=== PATIENT | female | born 2000 | race Caucasian/White ===

== ENCOUNTER 2018-04-21 02:08 | Emergency (ER) | payer SELFPAY ==
[~2018-04-21] VITALS: Ht 157.5 cm; Wt 61.2 kg
[2018-04-21] MEDS ORDERED: INSU100C (02:23)
[2018-04-21] MEDS ORDERED: INSU100I24 (02:23)
--- NOTE | 2018-04-21 02:32 | NUR ---
DR LAUREN DO MD AT BEDSIDE FOR MSE.
--- NOTE | 2018-04-21 02:48 | NUR ---
Patient discharged to home in stable conditon. Written and verbal after care instructions given. Patient verbalizes understanding of instructions. No distress noted.
[2018-04-21 02:49] VITALS: BP 116/63
== END 2018-04-21 02:49 | disposition home or self-care (01) ==
LOC: ER 02:14
DX: S80.212A Abrasion, left knee, initial encounter (principal); E11.9 Type 2 diabetes mellitus without complications; Z79.4 Long term (current) use of insulin; V43.62XA Car passenger injured in collision with other type car in traffic accident, initial encounter; Y93.89 Activity, other specified; Y92.410 Unspecified street and highway as the place of occurrence of the external cause; Y99.8 Other external cause status
CPT/HCPCS: 99281; A4663

== ENCOUNTER 2019-03-05 22:05 | Emergency (ER) | payer BC ==
[~2019-03-05] VITALS: Ht 160 cm; Wt 63.5 kg
[~2019-03-05 22:05] MED LIST: INSU100C; INSU100I24
[2019-03-05 22:33] LABS: *BLOOD, URINE 3+ (NEGATIVE); *CLARITY,URINE CLOUDY (CLEAR); *COLOR,URINE RED (YELLOW); *KETONES,URINE 1+ (NEGATIVE); LEUKOCYTE ESTERASE ,URINE 3+ (NEGATIVE); NITRITE, URINE POSITIVE (NEGATIVE)
[2019-03-05 22:46] LABS: *BILIRUBIN,URIN 2+ (NEGATIVE); UGLUCOSE 3+ (NEGATIVE)
[2019-03-05 22:51] LABS: *URINE HCG, QUAL NEGATIVE (NEGATIVE)
[2019-03-05 22:54] LABS: BACTERIA,URINE MODERATE /HPF (NONE SEEN); RBC,URINE TNTC /HPF (0-3); SQUAMOUS EPITHELIAL CELL,UR FEW /HPF (NONE SEEN)
[2019-03-05] MEDS ORDERED: KETOROLAC TROMETHAMINE 15 MG INJ IV ONE (23:00)
[2019-03-05] MEDS ORDERED: IV NORMAL SALINE 1000 ML BAG IV ONE (23:00)
[2019-03-05] MEDS ORDERED: ONDANSETRON 4 MG/2 ML VIAL IV ONE (23:00)
[2019-03-05] MEDS ORDERED: KETOROLAC TROMETHAMINE 30 MG INJ ONE (23:21)
[2019-03-05] MEDS ORDERED: ONDANSETRON 4 MG/2 ML VIAL ONE (23:21)
[2019-03-05 23:22] LABS: BASOPHILS % (AUTO) 0.8 % (0.0-2.0); EOSINOPHILS % (AUTO) 0.5 % (0.0-7.0); HEMATOCRIT 40.4 % (31.2-41.9); HEMOGLOBIN 12.8 g/dL (10.9-14.3); LYMPHOCYTES # (AUTO) 1.5 K/uL (20.0-40.0); LYMPHOCYTES % (AUTO) 23.5 % (20.5-74.5); MEAN CORPUSCULAR HGB CONC 32 g/dL (32.3-35.6); MEAN CORPUSCULAR VOLUME 62.9 fL (75.5-95.3); MONOCYTES # (AUTO) 0.5 K/uL (2.0-10.0); NEUTROPHILS # (AUTO) 4.4 K/uL (1.8-8.9); NEUTROPHILS % (AUTO) 67.2 % (31.5-64.5); PLATELET COUNT (AUTO) 267 K/uL (179-408); RED BLOOD CELL COUNT(AUTO) 6.42 MIL/uL (3.63-4.92); WHITE BLOOD COUNT (AUTO) 6.5 K/uL (3.8-11.8)
[2019-03-05 23:31] LABS: CREATININE 0.6 mg/dL (0.6-1.3); POTASSIUM 3.8 mmol/L (3.5-5.1)
[2019-03-05 23:36] LABS: BILIRUBIN,DIRECT 0.1 mg/dL (0.0-0.2); BILIRUBIN,TOTAL 0.4 mg/dL (0.2-1.0)
--- NOTE | 2019-03-05 23:36 | NUR ---
Ultrasound at bedside.
[2019-03-05 23:51] LABS: LYMPHOCYTES % (MANUAL) 25 % (38-48); MONOCYTES % (MANUAL) 7 % (2-10); NEUTROPHILS % (MANUAL) 68 % (40-55)
--- NOTE | 2019-03-06 00:23 | NUR ---
IV removed. Catheter intact and site benign. Pressure and 4x4 gauze applied to site. No bleeding noted.
[2019-03-06 00:26] VITALS: BP 114/86
--- NOTE | 2019-03-06 00:27 | NUR ---
Patient discharged to home in stable conditon. Written and verbal after care instructions given. Patient verbalizes understanding of instructions. Pt left ER in stable gait with boyfriend. Pt states has no more pain. All belongings w pt. VSS No acute distress noted.
== END 2019-03-06 00:28 | disposition home or self-care (01) ==
LOC: ER 22:05
DX: R10.30 Lower abdominal pain, unspecified (principal); R11.10 Vomiting, unspecified; E11.9 Type 2 diabetes mellitus without complications; Z79.4 Long term (current) use of insulin
CPT/HCPCS: 36415; 76856; 80048; 80076; 81001; 82962; 84703; 85025; 96361; 96374; 96375; 99284; J1885; J2405; A4663; J7030

== ENCOUNTER 2020-01-13 10:50 | Inpatient (IN) | payer BC ==
[~2020-01-13] VITALS: Ht 160 cm; Wt 59.1 kg
[2020-01-13] MEDS ORDERED: ONDANSETRON 4 MG/2 ML VIAL ONE (11:11)
[2020-01-13] MEDS ORDERED: INSULIN REGULAR, HUMAN 300 UNIT/3 ML VIAL ONE (11:11)
[2020-01-13] MEDS ORDERED: PANTOPRAZOLE SODIUM 40 MG VIAL IV ONE (11:15)
[2020-01-13] MEDS ORDERED: INSULIN REGULAR, HUMAN 300 UNIT/3 ML VIAL IV ONE (11:15)
[2020-01-13] MEDS ORDERED: ONDANSETRON 4 MG/2 ML VIAL IV ONE (11:15)
[2020-01-13] MEDS ORDERED: IV NORMAL SALINE 1000 ML BAG IV ONE (11:15)
[2020-01-13] MEDS ORDERED: INSULIN REGULAR, HUMAN 100 UNITS in IV NORMAL SALINE 100 ML IV ONE ×2 (11:15)
[2020-01-13 11:33] LABS: *BILIRUBIN,URIN NEGATIVE (NEGATIVE); *COLOR,URINE YELLOW (YELLOW); *KETONES,URINE 4+ (NEGATIVE); *UROBILINOGEN,URINE 0.2 E.U./dl (NORMAL); LEUKOCYTE ESTERASE ,URINE TRACE (NEGATIVE); NITRITE, URINE NEGATIVE (NEGATIVE); UGLUCOSE 2+ (NEGATIVE)
[2020-01-13 11:40] LABS: *BLOOD, URINE TRACE (NEGATIVE); *CLARITY,URINE SLIGHTLY CLOUDY (CLEAR)
[2020-01-13] MEDS ORDERED: PANTOPRAZOLE SODIUM 40 MG VIAL ONE (11:42)
[2020-01-13 11:47] LABS: BILIRUBIN,DIRECT 0.1 mg/dL (0.0-0.2); BILIRUBIN,TOTAL 0.9 mg/dL (0.2-1.0); CREATININE 0.9 mg/dL (0.6-1.3); POTASSIUM 4.9 mmol/L (3.5-5.1); TOTAL PROTEIN, SERUM 9.1 g/dL (6.4-8.2)
[2020-01-13 11:48] LABS: BACTERIA,URINE FEW /HPF (NONE SEEN); RBC,URINE 0-3 /HPF (0-3); SQUAMOUS EPITHELIAL CELL,UR MODERATE /HPF (NONE SEEN)
[2020-01-13 11:53] LABS: BASOPHILS # (AUTO) 0.1 K/uL (0.0-8.0); BASOPHILS % (AUTO) 0.8 % (0.0-2.0); EOSINOPHILS % (AUTO) 0.2 % (0.0-7.0); HEMATOCRIT 45.7 % (31.2-41.9); HEMOGLOBIN 13.8 g/dL (10.9-14.3); LYMPHOCYTES # (AUTO) 3.6 K/uL (20.0-40.0); LYMPHOCYTES % (AUTO) 27.9 % (20.5-51.5); MEAN CORPUSCULAR HEMOGLOBIN 21.1 uug (24.7-32.8); MEAN CORPUSCULAR HGB CONC 30 g/dL (32.3-35.6); MEAN CORPUSCULAR VOLUME 69.7 fL (75.5-95.3); MONOCYTES # (AUTO) 0.9 K/uL (2.0-10.0); MONOCYTES % (AUTO) 6.8 % (0.0-11.0); NEUTROPHILS # (AUTO) 8.3 K/uL (1.8-8.9); NEUTROPHILS % (AUTO) 64.3 % (38.5-71.5); PLATELET COUNT (AUTO) 295 K/uL (179-408); WHITE BLOOD COUNT (AUTO) 12.8 K/uL (3.8-11.8)
[2020-01-13 12:00] LABS: RED BLOOD CELL COUNT(AUTO) 6.56 MIL/uL (3.63-4.92)
--- NOTE | 2020-01-13 12:01 | NUR ---
Patient is resting comfortably in bed with eyes closed, no c/o pain.
[2020-01-13 12:06] LABS: LYMPHOCYTES % (MANUAL) 26 % (20-40); NEUTROPHILS % (MANUAL) 66 % (42-75)
[2020-01-13 12:07] LABS: MONOCYTES % (MANUAL) 8 % (2-10)
[2020-01-13 12:10] LABS: LIPASE 58 U/L (73-393)
--- NOTE | 2020-01-13 12:12 | NUR ---
Insulin drip increased to 5u/hr per MD order/protocol.
--- NOTE | 2020-01-13 12:24 | NUR ---
[facility] contacted
--- NOTE | 2020-01-13 12:30 | NUR ---
Insulin drip decreased to 3U/hr per MD/Protocol.
--- NOTE | 2020-01-13 13:36 | NUR ---
Pt's family at the bedside. pt is resting in bed speaking w/ family. NAD noted.
[2020-01-13] MEDS ORDERED: POTASSIUM CHLORIDE 50 ML IV STA (13:47)
[2020-01-13] MEDS ORDERED: POTASSIUM CHLORIDE 50 ML ONE (14:00)
[2020-01-13] MEDS ORDERED: IV D5 1/2 NS 1000 ML 1,000 ML IV ONE (14:00)
[2020-01-13] MEDS ORDERED: IV D5 1/2 NS 1000 ML 1,000 ML IV PRN (14:12)
[2020-01-13] MEDS ORDERED: Z GUARD REMEDY PASTE 57 GM TUBE TOP PRN (14:15)
[2020-01-13] MEDS ORDERED: HYDROCODONE/APAP 5-325MG TABLET PO PRN (14:15)
[2020-01-13] MEDS ORDERED: MAGNESIUM HYDROXIDE 30 ML LIQUID UDC PO PRN (14:15)
[2020-01-13] MEDS ORDERED: ONDANSETRON 4 MG/2 ML VIAL IV PRN (14:15)
[2020-01-13] MEDS ORDERED: ACETAMINOPHEN 325 MG TABLET PO PRN (14:15)
[2020-01-13] MEDS ORDERED: INSULIN REGULAR, HUMAN 100 UNIT in IV NORMAL SALINE 99 ML IV PRN ×2 (14:15)
[2020-01-13 14:34] LABS: CREATININE 0.8 mg/dL (0.6-1.3); PHOSPHOROUS 2.3 mg/dL (2.5-4.9); POTASSIUM 4.1 mmol/L (3.5-5.1)
--- NOTE | 2020-01-13 15:33 | NUR ---
Patient is resting comfortably in bed with eyes closed, NAD noted.
--- NOTE | 2020-01-13 16:52 | NUR ---
Light dinner provided, MD ramos
--- NOTE | 2020-01-13 18:19 | NUR ---
Patient is resting comfortably in bed with eyes closed, NAD noted.
--- NOTE | 2020-01-13 20:00 | NUR ---
Lindsayle to transfer patient to CCU due to no beds available.
--- NOTE | 2020-01-13 20:21 | NUR ---
Accu check is 270. Kept insulin drip at 3 units/Hrs per insulin drip protocol.
--- NOTE | 2020-01-13 23:36 | NUR ---
SPOKE WITH MAG MENENDEZ AND INFORMED HIM OF BLOOD SUGAR AT 375. DR MENENDEZ WILL ORDER BMP TO CHECK ANION GAP.
[2020-01-14 00:07] LABS: CREATININE 1.1 mg/dL (0.6-1.3); POTASSIUM 3.7 mmol/L (3.5-5.1)
--- NOTE | 2020-01-14 00:34 | NUR ---
DR BRADY SPOKE WITH Tami GOODMAN [employer] ENGINEER MD FOR [place]. DR SHELLEY OK TO DOWN GRADE PATIENT TO [facility] (TELE-TD).
[2020-01-14] MEDS ORDERED: INSULIN GLARGINE,HUM 300 UNITS/3 ML CARTRIDGE SQ ONE ×2 (00:40→01:00)
--- NOTE | 2020-01-14 00:45 | NUR ---
d/c'ed iv fluid and insulin drip as Dr Mcmahan ordered.
[2020-01-14] MEDS ORDERED: INSULIN GLARGINE,HUM 300 UNITS/3 ML CARTRIDGE SQ SCH (01:00)
--- NOTE | 2020-01-14 01:00 | NUR ---
Unable to transfer to 3rd floor [facility] due to no nurse available at this time.
--- NOTE | 2020-01-14 03:05 | NUR ---
Gave SBAR report to Shanita [facility] nurse from 3rd floor.
--- NOTE | 2020-01-14 03:15 | NUR ---
Transfered to 3rd floor [facility].
--- NOTE | 2020-01-14 03:32 | NUR ---
RECEIVED PT FROM ER VIA [facility]. UNDER THE CARE OF DR. SHELLEY. DX: DKA. PT IN NO ACUTE DISTRESS. IV INTACT. BELONGING LIST DONE. ADMISSION PROCESS AND CARE PLAN INITIATED. CUSTODIAL ASSESSMENT DONE. SAFETY AND COMFORT PROVIDED. WILL CONTINUE TO MONITOR.
[2020-01-14 03:39] VITALS: BP 119/88
--- NOTE | 2020-01-14 04:48 | NUR ---
DR. SHELLEY ORDERED MODERATE SLIDING SCALE Q6H. PT IN NO ACUTE DISTRESS. PT BOYFRIEND ON THE BED WITH PT . NOTIFY THE PT THAT HER BOYFRIEND SHOULDN'T BE ON THE BED PER HOSPITAL POLICY. WILL CONTINUE TO MONITOR.
[2020-01-14] MEDS ORDERED: BLOOD SUGAR DIAGNOSTIC 1 EACH STRIP VI SCH ×4 (04:56→11:30)
[2020-01-14] MEDS ORDERED: INSULIN REGULAR, HUMAN 300 UNIT/3 ML VIAL SQ PRN ×4 (04:56→08:00)
[2020-01-14 05:00] VITALS: BP 102/60
[2020-01-14] MEDS ORDERED: DEXTROSE 50% 50 ML DISP.SYRIN IV PRN ×3 (06:00→08:00)
--- NOTE | 2020-01-14 06:00 | NUR ---
LANTUS 20 UNITS ORDERED FOR 0100H WAS GIVEN IN ER.
[2020-01-14 06:34] LABS: BASOPHILS % (AUTO) 0.7 % (0.0-2.0); EOSINOPHILS % (AUTO) 0.5 % (0.0-7.0); LYMPHOCYTES # (AUTO) 1.6 K/uL (20.0-40.0); LYMPHOCYTES % (AUTO) 26.1 % (20.5-51.5); MEAN CORPUSCULAR HEMOGLOBIN 20.8 uug (24.7-32.8); MEAN CORPUSCULAR HGB CONC 30 g/dL (32.3-35.6); MEAN CORPUSCULAR VOLUME 68.8 fL (75.5-95.3); MONOCYTES # (AUTO) 0.4 K/uL (2.0-10.0); MONOCYTES % (AUTO) 7.4 % (0.0-11.0); NEUTROPHILS # (AUTO) 3.9 K/uL (1.8-8.9); NEUTROPHILS % (AUTO) 65.3 % (38.5-71.5); PLATELET COUNT (AUTO) 258 K/uL (179-408)
[2020-01-14 06:47] LABS: BILIRUBIN,TOTAL 0.7 mg/dL (0.2-1.0); CREATININE 1.1 mg/dL (0.6-1.3); MAGNESIUM 1.9 mg/dL (1.8-2.4); PHOSPHOROUS 4.2 mg/dL (2.5-4.9); POTASSIUM 4.4 mmol/L (3.5-5.1); TOTAL PROTEIN, SERUM 7.6 g/dL (6.4-8.2)
--- NOTE | 2020-01-14 06:52 | NUR ---
. DR. SHELLEY NOTIFIED FOR THE HIGH RESULT OF ACCUCHECK. 15 UNITS OF REGULAR INSULIN GIVEN SQ ORDERED. LAB CALLED FOR RECHECKED BLOOD SUGAR. DR. SHELLEY NOTIFIED AGAIN REGARDING BLOOD SUGAR RESULT FROM THE LAB WHICH IS 678. AWAITING FOR THE MD TO CALLBACK. PT ASYMPTOMATIC AND IN NO ACUTE DISTRESS.
--- NOTE | 2020-01-14 07:08 | NUR ---
Called salesperson [employer] for critical lab. awaiting call back. pt in no acute distress. will endorse to incoming nurse for continuity of care. safety and comfort provided.
[2020-01-14 07:35] LABS: HEMATOCRIT 41.4 % (31.2-41.9); HEMOGLOBIN 12.5 g/dL (10.9-14.3); RED BLOOD CELL COUNT(AUTO) 6.01 MIL/uL (3.63-4.92)
--- NOTE | 2020-01-14 07:38 | NUR ---
Rechecked BS 562. VSS 112/72-hr 88-r/a 98%-97temp. Placed call to exchange. Awaiting call back.
--- NOTE | 2020-01-14 07:44 | NUR ---
Spoke with isi gave details of times and doses of bs, lantus, and regular insulin. Ordered to recheck and monitor bs q1 and change s/s to aggressive. will monitor patient.
[2020-01-14 07:53] VITALS: BP 112/72
[2020-01-14] MEDS ORDERED: INSULIN REGULAR, HUMAN 300 UNITS/3 ML VIAL SQ PRN ×2 (08:00)
[2020-01-14 10:38] LABS: EOSINOPHILS % (MANUAL) 1 % (0-8); LYMPHOCYTES % (MANUAL) 22 % (20-40); MONOCYTES % (MANUAL) 8 % (2-10); NEUTROPHILS % (MANUAL) 69 % (42-75)
[2020-01-14 11:39] VITALS: BP 108/69
--- NOTE | 2020-01-14 12:00 | NUR ---
Reinforce to patient the importance of keeping good blood sugar levels. Pt's HGa1c was elevated up to level of 11. Pt. non compliant with diet - pt had waffles deliver via [employer] at 3am. Pt aware of s/s of low blood sugars. Dietitian to see patient for education for diabetic diet. Pt very passive during conversation. Pt will need continuous reinforcement education about diabetes.
[2020-01-14 13:31] LABS: CREATININE 1.1 mg/dL (0.6-1.3)
--- NOTE | 2020-01-14 15:30 | NUR ---
Pt. discharge instructions given to patient. Pt is to follow up with primary doctor within 1 week. Instructed pt to Go to ER if blood sugar is uncontrolled. Pt refused to have bs rechecked prior to discharge. Pt aware of s/s of having low and high blood sugar level. No new medications ordered per DR cordero. Dietitian saw patient earlier. IV d/c.
[2020-01-14 15:41] VITALS: BP 108/69
== END 2020-01-14 15:30 | disposition home health service (06) | DRG 639 ==
LOC: ER 10:50 → TELE-TD3 01-14 01:09
PROVIDERS: ADMIT Hospitalist; ATTEND Hospitalist
DX: E10.10 Type 1 diabetes mellitus with ketoacidosis without coma (principal); E86.0 Dehydration; D72.829 Elevated white blood cell count, unspecified; I45.10 Unspecified right bundle-branch block; Z91.14 Patient's other noncompliance with medication regimen
CPT/HCPCS: 36415; 70030-TC; 71045; 83690; 83735; 84100; 85025; 87040; 87086; 93005; A4663; C9113; G0378; J1815; J2405; J3480; J3490; J7030